=== PATIENT | female | born 1945 | race Asian ===

== ENCOUNTER 2017-07-09 09:19 | Day surgery (SDC) | payer OTHER, MEDICARE ==
[~2017-07-09] VITALS: Ht 154.9 cm; Wt 59.4 kg
[2017-07-09] MEDS ORDERED: CEFAZOLIN SOD 1 GM/ ISO 50 ML PREMIX IV ONE (10:00)
[2017-07-09] MEDS ORDERED: MIDAZOLAM HCL 5 MG/5 ML VIAL IVP ONE (12:18)
[2017-07-09] MEDS ORDERED: PROPOFOL 200MG/ 20ML VIAL (DIPRIVAN) IV ONE (12:18)
[2017-07-09] MEDS ORDERED: fentaNYL CITRATE/PF 100 MCG/2 ML AMP IVP ONE (12:18)
[2017-07-09] MEDS ORDERED: KETOROLAC TROMETHAMINE 30 MG VIAL IVP ONE (12:18)
[2017-07-09] MEDS ORDERED: ISOSULFAN BLUE 5 ML VIAL (LYMPHAZURIN) INJ ONE (12:18)
[2017-07-09] MEDS ORDERED: BUPIVACAINE /PF 0.25% 30 ML VIAL INJ ONE (12:18)
[2017-07-09] MEDS ORDERED: ONDANSETRON HCL 4 MG/2 ML VIAL IVP ONE (12:18)
[2017-07-09] MEDS ORDERED: METOPROLOL TARTRATE 5 MG/5 ML VIAL IVP ONE (12:18)
[2017-07-09] MEDS ORDERED: SEVOFLURANE 15 MIN GAS INH ONE (12:18)
[2017-07-09] MEDS ORDERED: LR 1,000 ML IV SCH (13:02)
[2017-07-09] MEDS ORDERED: HYDROmorphone 2 MG/ML VIAL IVP PRN ×2 (13:15)
[2017-07-09] MEDS ORDERED: ONDANSETRON HCL 4 MG/2 ML VIAL IVP PRN (13:15)
[2017-07-09] MEDS ORDERED: HYDROmorphone 1 MG INJ. 1 MG/ML AMPUL IVP PRN ×2 (13:15→14:30)
[2017-07-09] MEDS ORDERED: MEPERIDINE HCL/PF 25 MG/ML DISP.SYRIN IVP PRN ×2 (13:15)
[2017-07-09] MEDS ORDERED: D5/0.45 NS 1,000 ML IV SCH (14:20)
[2017-07-09] MEDS ORDERED: HYDROcodone/ACETAMIN 5-325 MG TAB (NORCO/ VICODIN) PO PRN ×2 (14:30)
[2017-07-09] MEDS ORDERED: HYDROcodone/ACETAMIN 5-325 MG TAB (NORCO/ VICODIN) ONE (15:05)
[2017-07-09 15:34] VITALS: BP_SYST 121
== END 2017-07-09 17:10 | disposition home or self-care (01) ==
LOC: SDS 09:19 → SMU 09:20 → SDS 17:10
PROVIDERS: ATTEND Colon & Rectal Surgery
DX: C50.912 Malignant neoplasm of unspecified site of left female breast (principal); D36.0 Benign neoplasm of lymph nodes; Z80.0 Family history of malignant neoplasm of digestive organs; M17.11 Unilateral primary osteoarthritis, right knee; I10 Essential (primary) hypertension; Z79.899 Other long term (current) drug therapy; I25.10 Atherosclerotic heart disease of native coronary artery without angina pectoris
CPT/HCPCS: 19281; 19301; 38525; 76098; 78195; 88305; 88307; 88333; 88342; A9541; J0690; J1885; J2250; J2405; J2704; J3010; J3490 ×2; Q9968